=== PATIENT | male | born 1965 | race Caucasian/White ===

== ENCOUNTER → 2023-07-22 | Outpatient (CLI) | payer OTHER, SELFPAY ==
--- OUTSIDE RECORDS SUMMARY | 2023-07-22 07:56 | XMS RPT_ITS | CCD ---
Author Name Unknown Address [address] [place] [address] Organization [facility] Care Team Providers Care Bell Valet Name Role Phone Cristy Ornelas MD Primary Care Provider CRISTY ORNELAS Primary Care Unavailable CRISTY ORNELAS Attending Unavailable CRISTY ORNELAS Attending Unavailable CRISTY ORNELAS Primary Care Unavailable CRISTY ORNELAS Attending Unavailable CRISTY ORNELAS Primary Care Unavailable Allergies Allergy Classification Reported Allergen(s) Allergy Type Date of Onset Reaction(s) Facility (6 sources) fluticasone; Translations: [FLUTICASONE PROPIONATE] Drug Allergy 0 Other: See Comments [facility] (6 sources) Seasonal allergy; Translations: [SEASONAL ALLERGIES] Allergy to substance 2 Cough [facility] Work Phone: Medications Completed/Discontinued Medications Medication Drug Class(es) Dates Sig (Normalized) Sig (Original) Ascorbic Acid-Echinacea (DAILY-C + ECHINACEA) 250-100 mg ORAL Chew (5 sources) Start: 10-27-2006 Ascorbic Acid-Echinacea (DAILY-C + ECHINACEA) 250-100 mg ORAL Chew calcium carbonate 185 mg oral tablet (5 sources) Start: 10-27-2006 Calcium Carbonate (CORAL CALCIUM) 185 mg ORAL Tab Multivitamin (DAILY MULTIVITAMIN) ORAL Tab (5 sources) Start: 10-27-2006 take 1 tablet by mouth once daily Multivitamin (DAILY MULTIVITAMIN) ORAL Tab Take one(1) tablet daily. 0 10/27/2006 Active Problems Active Problems Problem Classification Problem Date Documented Date Episodic/Chronic Disorders of lipid metabolism (5 sources) Hyperlipidemia; Translations: [Hyperlipidemia, unspecified] Onset: 08-13-2010 10-15-2010 Chronic Hyperplasia of prostate (5 sources) Benign prostatic hyperplasia; Translations: [Benign prostatic hyperplasia without lower urinary tract symptoms] Onset: 12-04-2016 12-04-2016 Chronic Malaise and fatigue (2 sources) Fatigue; Translations: [Other fatigue] Episodic Spondylosis; intervertebral disc disorders; other back problems (11 sources) Degeneration of lumbar intervertebral disc; Translations: [Other intervertebral disc degeneration, lumbar region] Onset: 12-05-2017 Chronic Past or Other Problems Problem Classification Problem Date Documented Da te Episodic/Chronic Other connective tissue disease (5 sources) 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; Translations: [Plantar fascial fibromatosis] Onset: 12-15-2015 12-15-2015 Episodic Spondylosis; intervertebral disc disorders; other back problems (5 sources) Cervical radiculopathy; Translations: [Radiculopathy, cervical region] Onset: 12-05-2017 12-05-2017 Episodic Sprains and strains (5 sources) Strain of neck muscle; Translations: [Strain of muscle, fascia and tendon at neck level, initial encounter] Onset: 10-30-2017 12-05-2017 Episodic Results Test Name Value Interpretation Reference Range Facil ity Vital Signs Date Time Vital Sign Value Performing Clinician Faci lity 10-28-2022 16:58-0400 Body weight 87.45 kg Cristy Ornelas MD Work Phone: [facility] 10-28-2022 16:58-0400 Diastolic blood pressure 84 mm[Hg] Crsity Ornelas MD Work Phone: [facility] 10-28-2022 16:58-0400 Heart rate 60 /min Cristy Ornelas MD Work Phone: [facility] 10-28-2022 16:58-0400 Respiratory rate 16 /min Cristy Ornelas MD Work Phone: [facility] 10-28-2022 16:58-0400 Systolic blood pressure 126 mm[Hg] Cristy Ornelas MD Work Phone: [facility] 11-02-2021 09:29-0400 Body height 180.3 cm Cristy Ornelas MD Work Phone: [facility] 11-02-2021 09:29-0400 Body weight 88.09 kg Cristy Ornelas MD Work Phone: [facility] 11-02-2021 09:29-0400 Diastolic blood pressure 82 mm[Hg] Cristy Ornelas MD Work Phone: [facility] 11-02-2021 09:29-0400 Heart rate 64 /min Cristy Ornelas MD Work Phone: [facility] 11-02-2021 09:29-0400 Respiratory rate 12 /min Cristy Ornelas MD Work Phone: [facility] 11-02-2021 09:29-0400 Systolic blood pressure 118 mm[Hg] Cristy rOnelas MD Work Phone: [facility] Encounters Encounter Date Encounter Type Care Provider Facility Start: 10-28-2022 End: 10-28-2022 ambulatory CRISTY ORNELAS Facility:[facility] Start: 10-28-2022 End: 10-28-2022 Patient encounter procedure Cristy Ornelas MD Work Phone: [facility] Procedures Date Procedure Procedure Detail Performing Clinician Start: 03-08-2021 Adult depression scr eening assessment Cristy Ornelas MD Work Phone: Start: 09-08-2017 Colonoscopy Cristy asif MD Work Phone: Plan of Treatment Date Care Activity Detail Author Start: 09-09-2027 Colonoscopy COLONOSCOPY [facility] Start: 09-09-2027 COLORECTAL CANCER SCREENING COLORECTAL CANCER SCREENING [facility] Start: 12-04-2026 Urine microalbumin profile DTA P,TDAP,TD (3 - Td or Tdap) [facility] Start: 10-05-2025 LIPID SCREEN LIPID SCREEN [facility] Start: 03-26-2024 DIABETES SCREEN DIABETES SCREEN [facility] Start: 10-29-2023 PROSTATE CANCER SCRE ENING DISCUSSION PROSTATE CANCER SCREENING DISCUSSION [facility] Immunizations Immunization Date Immunization Notes Care Provider Fa leo 12-04-2016 tetanus toxoid, reduced diphtheria toxoid, and acellular pertussis vaccine, adsorbed Cristy Ornelas MD Work Phone: [facility] 12-04-2005 diphtheria and tetan us toxoids, adsorbed for pediatric use Cristy Ornelas MD Work Phone: [facility] Work Phone: Payers Date Payer Category Payer Unknown [employer] PPO OOS [id number] 2010-Present [phone] [address] [place] [id number] PPO [id number] 2010 Unknown [employer] PPO OOS [id number] 2010-Present [phone] [address] [place] [address] PPO [id number] 2010 Unknown [id number] Social History Date Type Detail Facility Start: 03-30-2012 End: 10-28-2022 Tobacco smoking status NHIS Never smoked tobacco [facility] Start: 11-02-2021 End: 10-28-2022 Alcohol intake Current drinker of alcohol (finding) [facility] Start: 11-02-2021 End: 10-28-2022 Alcohol intake [facility] Start: 10-26-2021 End: 04-28-2022 History SDOH Alcohol Frequency 3 [facility] Start: 10-26-2021 End: 04-28-2022 History SDOH Alcohol Std Drinks 1 [facility] Start: 12-30-2018 History SDOH Alcohol Comment socially [facility] Start: 10-26-2021 End: 04-28-2022 History SDOH Social Connections Phone 4 [facility] Start: 10-26-2021 End: 04-28-2022 History SDOH Social Connections Get Together 2 [facility] Start: 10-26-2021 End: 04-28-2022 History SDOH Physical Activity MPS 6 [facility] Start: 09-10-2019 Education 15 [facility] Start: 1965 Sex Assigned At Not on file C [facility] Start: 10-23-2021 End: 11-02-2021 Exposure to SARS-CoV-2 (event) Not sure [facility] Start: 03-30-2012 End: 10-28-2022 Tobacco use and exposure Smokeless tobacco non-user [facility] Work Phone: Start: 04-28-2022 History SDOH Financial 5 [facility] Clinical Notes 05-07-2013 to 10-28-2022 Sheila Theodore Rene - 10/28/2022 5:31 PM Eddie Ornelas MD - 10/28/2022 5:00 PM EDTTelephone Encounter - Alba Zavalarafael Rene - 2022 4:02 PM Kelechi Ornelas MD - 05/03/2022 11:00 AM EST Note Date & Type Note Facility 10-28-2022 Note HNO ID: [id number] Author: Cristy Ornelas MD Service: ? Author Type: Physician Type: Progress Notes Filed: 10/28/2022 5:30 PM Note Text: Chief Complaint Patient presents with: Wellness HPI Fidel Cantu is a 57 year old male who presents here today for update FMLA. Pt here to renew or update FMLA which is required by [employer] every 6 months. Pt states that they were to fax new forms, but office has yet to receive those. He called them and they notified him to write an extension on his previous forms that were written 6 months ago. GI/Uro - Denies any stomach, bowel or urinary issues. Gets up once a night to urinate. Denies PSA testing, no hx of prostate cancer in his family. Cardio - Denies any chest pain, sob or dizziness. Diet/Exercise - Exercises by lifting weight, some cardio and boxing. Generally does this 6 days a weeks, alternating workouts, but resting on Friday. Overall eats fairly well. Back Pain: Has FMLA for fatigue, DDD lumbar and cervical spine and plantar fasciitis. Current FMLA written for 5 episodes/week, 1-2 days/episode. He is able to tolerate 8 hour shifts but starts having difficulty when required to work longer hours. Back pain is the same. He does exercise at home for cardio and strength training. Also goes to chiropractor monthly and see's Physical Therapist at work. Reports he injured or pulled a muscle on the right side of his abs when lifting a seasoning bag, which weighs 40-50 lbs. This occurred last week. Has been using Tylenol and icing. HM - Declines feeling down, depressed or hopeless. Depression screening tool completed and reviewed. Based on score and interview, patient is not at risk for depression. Screening tool discussed with patient, and I recommended no further intervention at this time. Discussed Shingles vaccine, will check with insurance. Declines Prostate Screening. Past medical history, appointments, medications, allergies reviewed. Previous Medical History PAST MEDICAL HISTORY Diagnosis Date ADJUST D/O W DEPRESS MOOD 02/25/2005 BPH without obstruction/lower urinary tract symptoms 12/04/2016 Cervical radiculopathy 12/05/2017 DDD (degenerative disc disease), cervical 12/05/2017 Degeneration of intervertebral disc, site unspecified 2004 L5-S1 Genital warts 08/13/2010 Hyperlipidemia 08/13/2010 Plantar fascial fibromatosis of both feet 12/15/2015 Ureterolithiasis October 2013 passed spontaneously Previous Surgical History PAST SURGICAL HISTORY Procedure Laterality Date COLONOSCOPY FLX DX W/COLLJ SPEC WHEN PFRMD 09/08/2017 Colonoscopy LAMNOTMY INCL W/DCMPRSN NRV ROOT 1 INTRSPC LUMBR 07/09/2004 L-5 to S-1 dissectomyShirley Family History FAMILY HISTORY Problem Relation Age of Onset Asthma Mother Thyroid Mother other (macular degeneration) Mother other (pneumonia) Mother Coronary Artery Disease Father heart attack age 66, dec. Patient Allergies ALLERGIES Allergen Reactions Flonase [Fluticason* Other: See Comments Palpitations, dizziness Seasonal Allergies Cough Current Medications Current Outpatient Medications on File Prior to Visit Medication Sig [place]adia-3 Fatty Acids (FISH OIL) 500 mg cap Take 500 mg by mouth once daily. Multivitamin (DAILY MULTIVITAMIN) ORAL Tab Take one(1) tablet daily. Ascorbic Acid-Echinacea (DAILY-C + ECHINACEA) 250-100 mg ORAL Chew Calcium Carbonate (CORAL CALCIUM) 185 mg ORAL Tab No current facility-administered medications on file prior to visit. Social History Social History Tobacco Use Smoking status: Never Smokeless tobacco: Never Vaping Use Vaping Use: Never used Substance Use Topics Alcohol use: Yes Alcohol/week: 5.0 standard drinks Types: 1 Glasses of Wine (5oz), 1 Cans of Beer (12oz) per week Comment: socially Drug use: No EXAM: BP 126/84 (BP Site: Left Arm, BP Position: Sitting, BP Cuff Size: Regular Adult) Pulse 60 Resp 16 Wt 87.5 kg (192 lb 12.8 oz) BMI 26.89 kg/m? General Appearance: Well appearing, alert, in no acute distress, well-hydrated, well nourished.. Neck: Supple, no adenopathy; thyroid symmetric, normal size, no bruits. Back:no pain to palpation of vertebrae, good flexion and extension, good range of motion, no muscle tenderness in his back on today's exam. No evidence of scoliosis. Some tenderness during ROM from ab muscle. Lungs: Lungs clear to auscultation. No wheezing, rhonchi, rales.. Heart: RRR without murmur, gallop, or rubs. No ectopy. Abdomen: Normal abdominal exam. Health Maintenance List HEPATITIS B(1 of 3 - 3-dose series) Never done SHINGRIX VACCINE(1 of 2) Never done PROSTATE CANCER SCREENING DISCUSSION due on 12/04/2021 DEPRESSION ASSESSMENT due on 05/12/2022 HEPATITIS C SCREENING due on 11/02/2022 COVID-19 VACCINE(1) due on 11/02/2022 INFLUENZA(Season Ended) due on 01/10/2023 DIABETES SCREEN due on 03/26/2024 LIPID SCREEN due on 10/05/2025 DTAP,TDAP,TD(3 - Td (more content not included)... [facility] 10-28-2022 Nurse Note Updated FMLA paperwork has been faxed back to [facility] [employer] [place] at F#: [phone]. Sheila Jaimes Ma documented in this encounter [facility] 10-28-2022 History of Presen t illness Narrative Chief Complaint Patient presents with: Wellness HPI Fidel Cantu is a 57 year old male who presents here today for update FMLA. Pt here to renew or update FMLA which is required by [employer] every 6 months. Pt states that they were to fax new forms, but office has yet to receive those. He called them and they notified him to write an extension on his previous forms that were written 6 months ago. GI/Uro - Denies any stomach, bowel or urinary issues. Gets up once a night to urinate. Denies PSA testing, no hx of prostate cancer in his family. Cardio - Denies any chest pain, sob or dizziness. Diet/Exercise - Exercises by lifting weight, some cardio and boxing. Generally does this 6 days a weeks, alternating workouts, but resting on Friday. Overall eats fairly well. Back Pain: Has FMLA for fatigue, DDD lumbar and cervical spine and plantar fasciitis. Current FMLA written for 5 episodes/week, 1-2 days/episode. He is able to tolerate 8 hour shifts but starts having difficulty when required to work longer hours. Back pain is the same. He does exercise at home for cardio and strength training. Also goes to chiropractor monthly and see's Physical Therapist at work. Reports he injured or pulled a muscle on the right side of his abs when lifting a seasoning bag, which weighs 40-50 lbs. This occurred last week. Has been using Tylenol and icing. HM - Declines feeling down, depressed or hopeless. Depression screening tool completed and reviewed. Based on score and interview, patient is not at risk for depression. Screening tool discussed with patient, and I recommended no further intervention at this time. Discussed Shingles vaccine, will check with insurance. Declines Prostate Screening. Past medical history, appointments, medications, allergies reviewed. Previous Medical History PAST MEDICAL HISTORY Diagnosis Date ADJUST D/O W DEPRESS MOOD 02/25/2005 BPH without obstruction/lower urinary tract symptoms 12/04/2016 Cervical radiculopathy 12/05/2017 DDD (degenerative disc disease), cervical 12/05/2017 Degeneration of intervertebral disc, site unspecified 2004 L5-S1 Genital warts 08/13/2010 Hyperlipidemia 08/13/2010 Plantar fascial fibromatosis of both feet 12/15/2015 Ureterolithiasis October 2013 passed spontaneously Previous Surgical History PAST SURGICAL HISTORY Procedure Laterality Date COLONOSCOPY FLX DX W/COLLJ SPEC WHEN PFRMD 09/08/2017 Colonoscopy LAMNOTMY INCL W/DCMPRSN NRV ROOT 1 INTRSPC LUMBR 07/09/2004 L-5 to S-1 Shirley segura Family History FAMILY HISTORY Problem Relation Age of Onset Asthma Mother Thyroid Mother other (macular degeneration) Mother other (pneumonia) Mother Coronary Artery Disease Father heart attack age 66, dec. Patient Allergies ALLERGIES Allergen Reactions Flonase [Fluticason* Other: See Comments Palpitations, dizziness Seasonal Allergies Cough Current Medications Current Outpatient Medications on File Prior to Visit Medication Sig Cascadia-3 Fatty Acids (FISH OIL) 500 mg cap Take 500 mg by mouth once daily. Multivitamin (DAILY MULTIVITAMIN) ORAL Tab Take one(1) tablet daily. Ascorbic Acid-Echinacea (DAILY-C + ECHINACEA) 250-100 mg ORAL Chew Calcium Carbonate (CORAL CALCIUM) 185 mg ORAL Tab No current facility-administered medications on file prior to visit. Social History Social History Tobacco Use Smoking status: Never Smokeless tobacco: Never Vaping Use Vaping Use: Never used Substance Use Topics Alcohol use: Yes Alcohol/week: 5.0 standard drinks Types: 1 Glasses of Wine (5oz), 1 Cans of Beer (12oz) per week Comment: socially Drug use: No EXAM: BP 126/84 (BP Site: Left Arm, BP Position: Sitting, BP Cuff Size: Regular Adult) Pulse 60 Resp 16 Wt 87.5 kg (192 lb 12.8 oz) BMI 26.89 kg/m General Appearance: Well appearing, alert, in no acute distress, well-hydrated, well nourished.. Neck: Supple, no adenopathy; thyroid symmetric, normal size, no bruits. Back:no pain to palpation of vertebrae, good flexion and extension, good range of motion, no muscle tenderness in his back on today's exam. No evidence of scoliosis. Some tenderness during ROM from ab muscle. Lungs: Lungs clear to auscultation. No wheezing, rhonchi, rales.. Heart: RRR without murmur, gallop, or rubs. No ectopy. Abdomen: Normal abdominal exam. Health Maintenance List HEPATITIS B(1 of 3 - 3-dose series) Never done SHINGRIX VACCINE(1 of 2) Never done PROSTATE CANCER SCREENING DISCUSSION due on 12/04/2021 DEPRESSION ASSESSMENT due on 05/12/2022 HEPATITIS C SCREENING due on 11/02/2022 COVID-19 VACCINE(1) due on 11/02/2022 INFLUENZA(Season Ended) due on 01/10/2023 DIABETES SCREEN due on 03/26/2024 LIPID SCREEN due on 10/05/2025 DTAP,TDAP,TD(3 - Td or Tdap) due on 12/04/2026 COLORECTAL CANCER SCREENING due on 09/09/2027 HIV SCREENING Completed Data reviewed None ASSESSMENT/PLAN: 1. Wellness examination - ICD9: V70.0, ICD10: Z00.00 (primary diagnosis) - Counseled on healthy diet and regular exercise 2. DDD (degenerative disc disease), lumbar - ICD9: 722.52, ICD10: M51.36 - Chronic - Cont exercises - Will complete FMLA paperwork with same parameters. 3. DDD (degenerative disc disease), cervical - ICD9: 722.4, ICD10: M50.30 - Stable, follow the same parameters. - Addend previous forms for FMLA 4. Fatigue, unspecified type - ICD9: 780.79, ICD10: R53.83 - Stable, follow the same parameters. 6 mo f/u to complete FMLA paperwork I agree with the Chief Complaint, ROS, and Past Histories independently gathered by the clinical senior administrative support and the remaining scribed note accurately describes my personal service to the patient. Cristy Ornelas MD The documentation for this note was completed by Sheila Jaimes Ma acting as scribe for Cristy Ornelas MD. October 28, 2022 5:21 PM. Sheila Jaimes Ma documented in this encounter [facility] 2022 Miscellaneous Notes Forms faxed. Copy at [facility] rec for bulk picker. Alba Hall Ma Patient returned call and states to please fax forms to [place]. He also says he would like a copy, and will pick it up sometime . Ursula Dobbs RN Message left for pt to call back. Does he want forms faxed or does he want to bulk picker? Copy made for records. Alba Hall Ma Form done Cristy Ornelas MD Office received [employer] paperwork. Pt asked to make two copies and notify him when done. Call pt at [phone]. Ask pt at that time if he wants us to fax in paperwork to: [employer] at [phone]. Routed to PCP to complete. Sheila Jaimes Ma Patient calls and states that he has copy of paperwork. Patient states that he will drop it off tomorrow. Teresita Loco RN Office still has not received any FMLA paperwork for pt. Pt notified via identified VM. Alba Hall Ma Pt completed tele-health visit today and said that [place] should be faxing forms. None received in office at current time. Will continue to watch and keep pt posted if not received. Sheila Jaimes Ma documented in this encounter [facility] 05-03-2022 Note HNO ID: [id number] Author: Cristy Ornelas MD Service: ? Author Type: Physician Type: Progress Notes Filed: 05/03/2022 11:18 AM Note Text: Chief Complaint Patient presents with: Follow Up HPI:This Team Access Model visit is a phone encounter. It required patient-provider interaction for the medical decision making as documented below. Patient was offered a virtual/telemedicine appointment in lieu of an office visit due to recommendations to reduce patient exposure to COVID-19. Patient is aware of limitations of performing the visit without a face to face visit in the office setting and agrees. Pt completing tele-health visit today due to the weather. Pt went to [place] 04/13/22 - 04/20/22. On FMLA for fatigue, back pain due to DDD lumbar and cerivcal; and plantar fasciitis through [employer]. Currently FMLA forms are written for 5 episodes/week, 1-2 days/episodes. He is able to tolerate working 8 hour shifts but gets difficulty when he has to work more than 8 hours. Symptoms get worse later in the week. His back is doing about the same; has monthly chiropractor visits. Exercises at home - cardio and strength training. The current FMLA restrictions are working OK for him. HM - Declines Flu and Depression. Past medical history, appointments, medications, allergies reviewed. Previous Medical History PAST MEDICAL HISTORY Diagnosis Date ADJUST D/O W DEPRESS MOOD 02/25/2005 BPH without obstruction/lower urinary tract symptoms 12/04/2016 Cervical radiculopathy 12/05/2017 DDD (degenerative disc disease), cervical 12/05/2017 Degeneration of intervertebral disc, site unspecified 2004 L5-S1 Genital warts 08/13/2010 Hyperlipidemia 08/13/2010 Plantar fascial fibromatosis of both feet 12/15/2015 Ureterolithiasis October 2013 passed spontaneously Previous Surgical History PAST SURGICAL HISTORY Procedure Laterality Date COLONOSCOPY FLX DX W/COLLJ SPEC WHEN PFRMD 09/08/2017 Colonoscopy LAMNOTMY INCL W/DCMPRSN NRV ROOT 1 INTRSPC LUMBR 07/09/2004 L-5 to S-1 dissectomyShirley Family History FAMILY HISTORY Problem Relation Age of Onset Asthma Mother Thyroid Mother other (macular degeneration) Mother other (pneumonia) Mother Coronary Artery Disease Father heart attack age 66, dec. Patient Allergies ALLERGIES Allergen Reactions Flonase [Fluticason* Other: See Comments Palpitations, dizziness Seasonal Allergies Cough Current Medications Current Outpatient Medications on File Prior to Visit Medication Sig [place]adia-3 Fatty Acids (FISH OIL) 500 mg cap Take 500 mg by mouth once daily. Multivitamin (DAILY MULTIVITAMIN) ORAL Tab Take one(1) tablet daily. Ascorbic Acid-Echinacea (DAILY-C + ECHINACEA) 250-100 mg ORAL Chew Calcium Carbonate (CORAL CALCIUM) 185 mg ORAL Tab No current facility-administered medications on file prior to visit. Social History Social History Tobacco Use Smoking status: Never Smokeless tobacco: Never Vaping Use Vaping Use: Never used Substance Use Topics Alcohol use: Yes Alcohol/week: 5.0 standard drinks Types: 1 Glasses of Wine (5oz), 1 Cans of Beer (12oz) per week Comment: socially Drug use: No EXAM: There were no vitals taken for this visit. Phone visit; no exam Health Maintenance List HEPATITIS B(1 of 3 - 3-dose series) Never done SHINGRIX VACCINE(1 of 2) Never done DEPRESSION ASSESSMENT Never done PROSTATE CANCER SCREENING DISCUSSION due on 12/04/2021 INFLUENZA(1) due on 01/10/2022 HEPATITIS C SCREENING due on 11/02/2022 COVID-19 VACCINE(1) due on 11/02/2022 DIABETES SCREEN due on 03/26/2024 LIPID SCREEN due on 10/05/2025 DTAP,TDAP,TD(3 - Td or Tdap) due on 12/04/2026 COLORECTAL CANCER SCREENING due on 09/09/2027 HIV SCREENING Completed Data reviewed none ASSESSMENT/PLAN: 1. DDD (degenerative disc disease), lumbar - ICD9: 722.52, ICD10: M51.36 (primary diagnosis) 2. DDD (degenerative disc disease), cervical - ICD9: 722.4, ICD10: M50.30 Continue same regimen; will complete FMLA papers as requested Follow up in 6 months 5-10 minutes of time spent on phone call Cristy Ornelas MD [facility] 05-03-2022 History of Presen t illness Narrative Chief Complaint Patient presents with: Follow Up HPI:This Team Access Model visit is a phone encounter. It required patient-provider interaction for the medical decision making as documented below. Patient was offered a virtual/telemedicine appointment in lieu of an office visit due to recommendations to reduce patient exposure to COVID-19. Patient is aware of limitations of performing the visit without a face to face visit in the office setting and agrees. Pt completing tele-health visit today due to the weather. Pt went to [place] 04/13/22 - 04/20/22. On FMLA for fatigue, back pain due to DDD lumbar and cerivcal; and plantar fasciitis through [employer]. Currently FMLA forms are written for 5 episodes/week, 1-2 days/episodes. He is able to tolerate working 8 hour shifts but gets difficulty when he has to work more than 8 hours. Symptoms get worse later in the week. His back is doing about the same; has monthly chiropractor visits. Exercises at home - cardio and strength training. The current FMLA restrictions are working OK for him. HM - Declines Flu and Depression. Past medical history, appointments, medications, allergies reviewed. Previous Medical History PAST MEDICAL HISTORY Diagnosis Date ADJUST D/O W DEPRESS MOOD 02/25/2005 BPH without obstruction/lower urinary tract symptoms 12/04/2016 Cervical radiculopathy 12/05/2017 DDD (degenerative disc disease), cervical 12/05/2017 Degeneration of intervertebral disc, site unspecified 2004 L5-S1 Genital warts 08/13/2010 Hyperlipidemia 08/13/2010 Plantar fascial fibromatosis of both feet 12/15/2015 Ureterolithiasis October 2013 passed spontaneously Previous Surgical History PAST SURGICAL HISTORY Procedure Laterality Date COLONOSCOPY FLX DX W/COLLJ SPEC WHEN PFRMD 09/08/2017 Colonoscopy LAMNOTMY INCL W/DCMPRSN NRV ROOT 1 INTRSPC LUMBR 07/09/2004 L-5 to S-1 dissectomyShirley Family History FAMILY HISTORY Problem Relation Age of Onset Asthma Mother Thyroid Mother other (macular degeneration) Mother other (pneumonia) Mother Coronary Artery Disease Father heart attack age 66, dec. Patient Allergies ALLERGIES Allergen Reactions Flonase [Fluticason* Other: See Comments Palpitations, dizziness Seasonal Allergies Cough Current Medications Current Outpatient Medications on File Prior to Visit Medication Sig Cascadia-3 Fatty Acids (FISH OIL) 500 mg cap Take 500 mg by mouth once daily. Multivitamin (DAILY MULTIVITAMIN) ORAL Tab Take one(1) tablet daily. Ascorbic Acid-Echinacea (DAILY-C + ECHINACEA) 250-100 mg ORAL Chew Calcium Carbonate (CORAL CALCIUM) 185 mg ORAL Tab No current facility-administered medications on file prior to visit. Social History Social History Tobacco Use Smoking status: Never Smokeless tobacco: Never Vaping Use Vaping Use: Never used Substance Use Topics Alcohol use: Yes Alcohol/week: 5.0 standard drinks Types: 1 Glasses of Wine (5oz), 1 Cans of Beer (12oz) per week Comment: socially Drug use: No EXAM: There were no vitals taken for this visit. Phone visit; no exam Health Maintenance List HEPATITIS B(1 of 3 - 3-dose series) Never done SHINGRIX VACCINE(1 of 2) Never done DEPRESSION ASSESSMENT Never done PROSTATE CANCER SCREENING DISCUSSION due on 12/04/2021 INFLUENZA(1) due on 01/10/2022 HEPATITIS C SCREENING due on 11/02/2022 COVID-19 VACCINE(1) due on 11/02/2022 DIABETES SCREEN due on 03/26/2024 LIPID SCREEN due on 10/05/2025 DTAP,TDAP,TD(3 - Td or Tdap) due on 12/04/2026 COLORECTAL CANCER SCREENING due on 09/09/2027 HIV SCREENING Completed Data reviewed none ASSESSMENT/PLAN: 1. DDD (degenerative disc disease), lumbar - ICD9: 722.52, ICD10: M51.36 (primary diagnosis) 2. DDD (degenerative disc disease), cervical - ICD9: 722.4, ICD10: M50.30 Continue same regimen; will complete FMLA papers as requested Follow up in 6 months 5-10 minutes of time spent on phone call Cristy Ornelas MD documented in this encounter [facility] 11-02-2021 Note HNO ID: [id number] Author: Cristy Ornelas MD Service: ? Author Type: Physician Type: Progress Notes Filed: 11/02/2021 10:04 AM Note Text: Chief Complaint Patient presents with: Wellness HPI Fidel Cantu is a 56 year old male who presents here today for physical. Pt here for physical and to update FMLA paperwork. Denies any bowel, Gi, or urinary concerns. No chest pains, dizziness, or SOB. Tries to watch diet, hard with working in a [employer]. Does exercise with lifting weight, cardio and some boxing. Generally does this 6 days a week alternating between workouts. Takes off on Friday. DDD: Has monthly adjustments with the Chiropractor, which seems to help. Exercising also seems to help. On FMLA for fatigue, back pain due to DDD lumbar and cerivcal; and plantar fasciitis through [employer]. Pt receives FMLA through Dr. Arora for plantar fasciitis. Currently FMLA forms are written for 5 episodes/week, 1-2 days/episodes. He is able to tolerate working 8 hour shifts but gets difficulty when he has to work more than 8 hours. Symptoms get worse later in the week.. HM - Denies getting or wanting to receive Covid vaccines. Declines Hep C screening. Past medical history, appointments, medications, allergies reviewed. Previous Medical History PAST MEDICAL HISTORY Diagnosis Date - ADJUST D/O W DEPRESS MOOD 02/25/2005 - BPH without obstruction/lower urinary tract symptoms 12/04/2016 - Cervical radiculopathy 12/05/2017 - DDD (degenerative disc disease), cervical 12/05/2017 - Degeneration of intervertebral disc, site unspecified 2004 L5-S1 - Genital warts 08/13/2010 - Hyperlipidemia 08/13/2010 - Plantar fascial fibromatosis of both feet 12/15/2015 - Ureterolithiasis October 2013 passed spontaneously Previous Surgical History PAST SURGICAL HISTORY Procedure Laterality Date - COLONOSCOP W/ OR W/O [facility] SPEC 09/08/2017 Colonoscopy - EXCIS LUMBAR DISK,ONE LEVEL 07/09/2004 L-5 to S-1 dissectomyShirley Family History FAMILY HISTORY Problem Relation Age of Onset - Asthma Mother - Thyroid Mother - other (macular degeneration) Mother - other (pneumonia) Mother - Coronary Artery Disease Father heart attack age 66, dec. Patient Allergies ALLERGIES Allergen Reactions - Flonase [Fluticason* Other: See Comments Palpitations, dizziness - Seasonal Allergies Cough Current Medications Current Outpatient Medications on File Prior to Visit Medication Sig - omeprazole (PRILOSEC) 20 mg capsule Take 1 capsule by mouth daily before breakfast. 1/2 hr before meal. - Cascadia-3 Fatty Acids (FISH OIL) 500 mg cap Take 500 mg by mouth once daily. - Multivitamin (DAILY MULTIVITAMIN) ORAL Tab Take one(1) tablet daily. - Ascorbic Acid-Echinacea (DAILY-C + ECHINACEA) 250-100 mg ORAL Chew - Calcium Carbonate (CORAL CALCIUM) 185 mg ORAL Tab No current facility-administered medications on file prior to visit. Social History Social History Tobacco Use - Smoking status: Never Smoker - Smokeless tobacco: Never Used Vaping Use - Vaping Use: Never used Substance Use Topics - Alcohol use: Yes Alcohol/week: 5.0 standard drinks Types: 1 Glasses of Wine (5oz), 1 Cans of Beer (12oz) per week Comment: socially - Drug use: No EXAM: BP 118/82 (BP Site: Left Arm, BP Position: Sitting, BP Cuff Size: Regular Adult) Pulse 64 Resp 12 Ht 180.3 cm (5' 11 ) Wt 88.1 kg (194 lb 3.2 oz) BMI 27.09 kg/m? General Appearance: Well appearing, alert, in no acute distress, well-hydrated, well nourished.. Back:decreased ROM Lungs: Lungs clear to auscultation. No wheezing, rhonchi, rales.. Heart: RRR without murmur, gallop, or rubs. No ectopy. Health Maintenance List COVID-19 VACCINE(1) Never done HEPATITIS C SCREENING Never done SHINGRIX VACCINE(1 of 2) Never done PROSTATE CANCER SCREENING DISCUSSION due on 12/04/2021 INFLUENZA(Season Ended) due on 01/10/2022 DEPRESSION SCREENING due on 03/08/2022 DIABETES SCREEN due on 03/26/2024 LIPID SCREEN due on 10/05/2025 DTAP,TDAP,TD(3 - Td or Tdap) due on 12/04/2026 COLORECTAL CANCER SCREENING due on 09/09/2027 HIV SCREENING Completed Data reviewed none ASSESSMENT/PLAN: 1. Wellness examination - ICD9: V70.0, ICD10: Z00.00 (primary diagnosis) - Counseled on healthy diet and regular exercise - Follow up for annual exam in one year 2. DDD (degenerative disc disease), lumbar - ICD9: 722.52, ICD10: M51.36 Continue symptomatic treatment 3. DDD (degenerative disc disease), cervical - ICD9: 722.4, ICD10: M50.30 Continue symptomatic treatment 4. Fatigue, unspecified type - ICD9: 780.79, ICD10: R53.83 Monitor FMLA form completed; 8 hours/day, 5 days/week; intermittent leave up to 5 times/week, 2 days/episode Follow up prn Cristy Ornelas MD [facility] 11-02-2021 Miscellaneous Notes Office received pt's FMLA paperwork during pt's visit today. This has been completed by PCP and faxed to [employer] at [phone]. Will be scanned into pt's chart for records. Sheila Jaimes Ma documented in this encounter [facility] 11-02-2021 History of Presen t illness Narrative Chief Complaint Patient presents with: Wellness HPI Fidel Cantu is a 56 year old male who presents here today for physical. Pt here for physical and to update FMLA paperwork. Denies any bowel, Gi, or urinary concerns. No chest pains, dizziness, or SOB. Tries to watch diet, hard with working in a [employer]. Does exercise with lifting weight, cardio and some boxing. Generally does this 6 days a week alternating between workouts. Takes off on Friday. DDD: Has monthly adjustments with the Chiropractor, which seems to help. Exercising also seems to help. On FMLA for fatigue, back pain due to DDD lumbar and cerivcal; and plantar fasciitis through [employer]. Pt receives FMLA through Dr. Arora for plantar fasciitis. Currently FMLA forms are written for 5 episodes/week, 1-2 days/episodes. He is able to tolerate working 8 hour shifts but gets difficulty when he has to work more than 8 hours. Symptoms get worse later in the week.. HM - Denies getting or wanting to receive Covid vaccines. Declines Hep C screening. Past medical history, appointments, medications, allergies reviewed. Previous Medical History PAST MEDICAL HISTORY Diagnosis Date ADJUST D/O W DEPRESS MOOD 02/25/2005 BPH without obstruction/lower urinary tract symptoms 12/04/2016 Cervical radiculopathy 12/05/2017 DDD (degenerative disc disease), cervical 12/05/2017 Degeneration of intervertebral disc, site unspecified 2004 L5-S1 Genital warts 08/13/2010 Hyperlipidemia 08/13/2010 Plantar fascial fibromatosis of both feet 12/15/2015 Ureterolithiasis October 2013 passed spontaneously Previous Surgical History PAST SURGICAL HISTORY Procedure Laterality Date COLONOSCOP W/ OR W/O [facility] SPEC 09/08/2017 Colonoscopy EXCIS LUMBAR DISK,ONE LEVEL 07/09/2004 L-5 to S-1 Shirley segura Family History FAMILY HISTORY Problem Relation Age of Onset Asthma Mother Thyroid Mother other (macular degeneration) Mother other (pneumonia) Mother Coronary Artery Disease Father heart attack age 66, dec. Patient Allergies ALLERGIES Allergen Reactions Flonase [Fluticason* Other: See Comments Palpitations, dizziness Seasonal Allergies Cough Current Medications Current Outpatient Medications on File Prior to Visit Medication Sig omeprazole (PRILOSEC) 20 mg capsule Take 1 capsule by mouth daily before breakfast. 1/2 hr before meal. Cascadia-3 Fatty Acids (FISH OIL) 500 mg cap Take 500 mg by mouth once daily. Multivitamin (DAILY MULTIVITAMIN) ORAL Tab Take one(1) tablet daily. Ascorbic Acid-Echinacea (DAILY-C + ECHINACEA) 250-100 mg ORAL Chew Calcium Carbonate (CORAL CALCIUM) 185 mg ORAL Tab No current facility-administered medications on file prior to visit. Social History Social History Tobacco Use Smoking status: Never Smoker Smokeless tobacco: Never Used Vaping Use Vaping Use: Never used Substance Use Topics Alcohol use: Yes Alcohol/week: 5.0 standard drinks Types: 1 Glasses of Wine (5oz), 1 Cans of Beer (12oz) per week Comment: socially Drug use: No EXAM: BP 118/82 (BP Site: Left Arm, BP Position: Sitting, BP Cuff Size: Regular Adult) Pulse 64 Resp 12 Ht 180.3 cm (5' 11 ) Wt 88.1 kg (194 lb 3.2 oz) BMI 27.09 kg/m General Appearance: Well appearing, alert, in no acute distress, well-hydrated, well nourished.. Back:decreased ROM Lungs: Lungs clear to auscultation. No wheezing, rhonchi, rales.. Heart: RRR without murmur, gallop, or rubs. No ectopy. Health Maintenance List COVID-19 VACCINE(1) Never done HEPATITIS C SCREENING Never done SHINGRIX VACCINE(1 of 2) Never done PROSTATE CANCER SCREENING DISCUSSION due on 12/04/2021 INFLUENZA(Season Ended) due on 01/10/2022 DEPRESSION SCREENING due on 03/08/2022 DIABETES SCREEN due on 03/26/2024 LIPID SCREEN due on 10/05/2025 DTAP,TDAP,TD(3 - Td or Tdap) due on 12/04/2026 COLORECTAL CANCER SCREENING due on 09/09/2027 HIV SCREENING Completed Data reviewed none ASSESSMENT/PLAN: 1. Wellness examination - ICD9: V70.0, ICD10: Z00.00 (primary diagnosis) - Counseled on healthy diet and regular exercise - Follow up for annual exam in one year 2. DDD (degenerative disc disease), lumbar - ICD9: 722.52, ICD10: M51.36 Continue symptomatic treatment 3. DDD (degenerative disc disease), cervical - ICD9: 722.4, ICD10: M50.30 Continue symptomatic treatment 4. Fatigue, unspecified type - ICD9: 780.79, ICD10: R53.83 Monitor FMLA form completed; 8 hours/day, 5 days/week; intermittent leave up to 5 times/week, 2 days/episode Follow up prn Cristy Ornelas MD documented in this encounter [facility] documented as of this encounter (statuses as of 11/02/2021) [facility]12[facility] History of Past illness Narrative* Problem Noted Date Resolved Date Single skin nodule 05/07/2013 12/04/2016 Routine physical examination 03/30/201205/2017 Overweight(278.02) 03/30/2012 06/17/2014 Genital warts 08/13/2010 03/30/2012 Ganglion cyst 08/13/2010 03/30/2012 OTHER MALAISE AND FATIGUE 02/25/20052010 ADJUST D/O W DEPRESS MOOD 02/25/20052011 documented as of this encounter (statuses as of 11/02/2021) [facility] History of Past illness Narrative* Problem Noted Date Resolved Date Single skin nodule 05/07/2013 12/04/2016 Routine physical examination 03/30/201205/2017 Overweight(278.02) 03/30/2012 06/17/2014 Genital warts 08/13/2010 03/30/2012 Ganglion cyst 08/13/2010 03/30/2012 OTHER MALAISE AND FATIGUE 02/25/20052010 ADJUST D/O W DEPRESS MOOD 02/25/20052011 documented as of this encounter (statuses as of 05/05/2022) [facility] History of Past illness Narrative* Problem Noted Date Resolved Date Single skin nodule 05/07/2013 12/04/2016 Routine physical examination 03/30/201205/2017 Overweight(278.02) 03/30/2012 06/17/2014 Genital warts 08/13/2010 03/30/2012 Ganglion cyst 08/13/2010 03/30/2012 OTHER MALAISE AND FATIGUE 02/25/20052010 ADJUST D/O W DEPRESS MOOD 02/25/20052011 documented as of this encounter (statuses as of 05/15/2022) [facility] History of Past illness Narrative* Problem Noted Date Resolved Date Single skin nodule 05/07/2013 12/04/2016 Routine physical examination 03/30/201205/2017 Overweight(278.02) 03/30/2012 06/17/2014 Genital warts 08/13/2010 03/30/2012 Ganglion cyst 08/13/2010 03/30/2012 OTHER MALAISE AND FATIGUE 02/25/20052010 ADJUST D/O W DEPRESS MOOD 02/25/20052011 documented as of this encounter (statuses as of 10/29/2022) [facility] Wellness examination- Primary DDD (degenerative disc disease), lumbar Degeneration of lumbar or lumbosacral intervertebral disc DDD (degenerative disc disease), cervical Degeneration of cervical intervertebral disc Fatigue, unspecified type [facility] Diagnosis DDD (degenerative disc disease), lumbar- Primary Degeneration of lumbar or lumbosacral intervertebral disc DDD (degenerative disc disease), cervical Degeneration of cervical intervertebral disc [facility] Diagnosis Wellness examination- Primary DDD (degenerative disc disease), lumbar Degeneration of lumbar or lumbosacral intervertebral disc DDD (degenerative disc disease), cervical Degeneration of cervical intervertebral disc Fatigue, unspecified type documented in this encounter [facility] Advance Directives No Advanced Directives Records FoundDocuments on File Type Date Recorded Patient Leadership Program Intern Expl anation Advance Directive(s) 09/08/2017 9:19 AM Summary Purpose Family History No Family History Records Found Additional Source Comments Source Comments (unrecognize d section and content) In the event this informatio n is protected by the Federal Confidentiality of Alcohol and Drug Abuse Patient Records regulations: The Federal rules restrict any use of the information to criminally investigate or prosecute any alcohol or drug abuse patient.[facility] the event this information is protected by the Federal Confidentiality of Alcohol and Drug Abuse Patient Records regulations: The Federal rules restrict any use of the information to criminally investigate or prosecute any alcohol or drug abuse patient.[facility] the event this information is protected by the Federal Confidentiality of Alcohol and Drug Abuse Patient Records regulations: The Federal rules restrict any use of the information to criminally investigate or prosecute any alcohol or drug abuse patient.[facility] the event this information is protected by the Federal Confidentiality of Alcohol and Drug Abuse Patient Records regulations: The Federal rules restrict any use of the information to criminally investigate or prosecute any alcohol or drug abuse patient.[facility] the event this information is protected by the Federal Confidentiality of Alcohol and Drug Abuse Patient Records regulations: The Federal rules restrict any use of the information to criminally investigate or prosecute any alcohol or drug abuse patient.[facility] Reason for Visit (unrecogniz ed section and content) Reason Comments Forms Reason Comments Follow Up Care Teams (unrecognized sec tion and content) Bell Valet Relationship Specialty Start Date End Date Cristy Ornelas MD [address] [place], [place] [phone] PCP - General Family Practice 12/30/18 Bell Valet Relationship Specialty Start Date End Date Cristy Ornelas MD [address] [place], [place] [phone] PCP - General Family Medicine 12/30/18 Bell Valet Relationship Specialty Start Date End Date Cristy Ornelas MD [address] [place], [place] [phone] PCP - General Family Medicine 12/30/18 Bell Valet Relationship Specialty Start Date End Date Cristy Ornelas MD [address] [place], [place] [phone] PCP - General Family Medicine 12/30/18 (unrecognized sect ion and content) No Status Records Found INFORMATION SOURCE (unrecogn ized section and content) FOR RECORDS PERTAINING TO PATIENTS WHO ARE OR HAVE BEEN ENROLLED IN A CHEMICAL DEPENDENCY/SUBSTANCEABUSE PROGRAM, SOME INFORMATION MAY BE OMITTED. This clinical summary was aggregated from multiple sources. Caution should be exercised in using it in the provision of clinical care. This summary normalizes information from multiple sources, and as a consequence, information in this document may materially change the coding, format and clinical context of patient data. In addition, data may be omitted in some cases. CLINICAL DECISIONS SHOULD BE BASED ON THE PRIMARY CLINICAL RECORDS. [employer] provides no warranty or guarantee of the accuracy or completeness of information in this document.
[2023-07-22 10:14] LABS: Absolute Lymphocyte Count 1.66 X10^3/uL (0.83-4.51); Absolute Neutrophil Count 3.6 X10^3/uL (2.0-7.7); Basophil# 0.07 X10^3/uL; Basophil% 1.1 % (0-1); Eosinophil# 0.24 X10^3/uL; Eosinophils% 3.8 % (0-5); Hemoglobin 15.3 g/dL (13.0-16.5); Lymphocyte # 1.66 X10^3/ul (0.83-4.51); Lymphocyte % 25.9 % (19-41); Mean Corp Hgb Conc 32.6 g/dL (32-36); Mean Corpuscular Hgb 28.4 pg (27.0-32.0); Mean Corpuscular Volume 87.2 fL (80-94); Mean Platelet Vol. 9.7 fl (6.2-12.0); Monocyte# 0.78 X10^3/uL; Monocyte% 12.2 % (0-10); NRBC Flagged by Analyzer 0 % (0-5); Neutrophil # 3.63 X10^3/uL (2.7-7.7); Neutrophil % 56.7 % (47-70); Platelet Count 245 K/mm3 (150-450); RBC Distribution Width CV 12.2 % (11.6-14.6); RBC Distribution Width SD 38.8 fl (35.1-43.9); Red Blood Count 5.39 M/mm3 (4.6-6.2); White Blood Count 6.4 K/mm3 (4.4-11.0)
[2023-07-22 11:08] LABS: ALB/GLOB Ratio 0.8 RATIO (0.9-2.4); AST(SGOT) 28 U/L (15-37); Alanine Aminotransfer ALT/SGPT 29 U/L (16-61); Albumin, Serum 3.4 g/dL (3.2-5.0); Alkaline Phosphatase 83 U/L (45-117); Anion Gap 7 (5-15); BUN 11 mg/dL (7-18); BUN/Creat Ratio 12.5 RATIO (10-20); Calcium,Total 8.7 mg/dL (8.5-10.1); Chloride 105 mmol/L (98-107); Cholesterol 237 mg/dL (200); Creatinine, Serum 0.88 mg/dL (0.70-1.30); EST Glomerular Filtration Rate 94 mL/min (>60); Est Glom Filt Rate - Afr Amer 114 mL/min (>60); Globulin 4.1 g/dL (2.2-4.2); Glucose 99 mg/dL (74-106); High Density Lipoprotein 45 mg/dL; PSA,Total - Annual Screen 0.76 ng/mL (0.00-4.00); Potassium 3.8 mmol/L (3.5-5.1); Protein, Total 7.5 g/dL (6.4-8.2); Sodium Level 137 mmol/L (136-145); Triglycerides 198 mg/dL; Very Low Density Lipoprotein 40 mg/dL (5-40)
== END | disposition home or self-care (01) ==
PROVIDERS: PCP Family Medicine; Referring Provider Family Medicine; Visit Provider Family Medicine
DX: Z13.220 Encounter for screening for lipoid disorders (principal); Z13.1 Encounter for screening for diabetes mellitus; Z12.5 Encounter for screening for malignant neoplasm of prostate
CPT/HCPCS: 36415; 80053; 80061; 84153; 85025; G0103